=== PATIENT | female | born 1955 | race Caucasian/White ===

== ENCOUNTER → 2017-11-09 | Outpatient (CLI) | payer OTHER | END | disposition home or self-care (01) | LOC: LAB EV 18:31 | DX: L08.9 Local infection of the skin and subcutaneous tissue, unspecified (principal) | CPT/HCPCS: 87070; 87075; 87077; 87147; 87186; 87205 ==

== ENCOUNTER 2020-10-27 07:53 | Day surgery (SDC) | payer MEDICARE, OTHER ==
[~2020-10-27] VITALS: Ht 167.6 cm; Wt 92.1 kg
[~2020-10-27 07:53] MED LIST: ELIQUIS5 MG PO; METO25ER PO; MULTI-VITAMIN1 EAC2 PO; THERA-D2000 UNIT PO; Vitamin B-Comp1 EACH PO
[2020-10-27] MEDS ORDERED: METHI10 PO (08:17)
--- NOTE | 2020-10-27 08:40 | NUR ---
10/27/20 0840 Gardenia Coats 0810 TETRACAINE DROP WAS APPLIED TO LEFT EYE PER DR ORDERS. 0815 PLEGIT WAS INSERTED INTO LEFT EYE PER DR ORDERS.
--- NOTE | 2020-10-27 09:09 | NUR ---
10/27/20 0909 Simran Cabrera, PILLOW UNDER KNEES, RAILS UP.
[2020-11-16] MEDS ORDERED: VITAMIN D325 MC3 PO (12:11)
[2020-11-16] MEDS ORDERED: CALCIUM MAGNES1 EAC1 PO (12:12)
[2020-11-16] MEDS ORDERED: ELIQUIS5 M2 PO (12:13)
[2020-11-16] MEDS ORDERED: TOPROL XL25 MG PO (12:13)
[2020-11-16] MEDS ORDERED: B-100 COMPLEX100 MG PO (12:13)
[2020-11-16] MEDS ORDERED: MULTIPLE VITAM1 EACH PO (12:13)
== END 2020-10-27 10:00 | disposition home or self-care (01) ==
LOC: ORSCSDS 07:53
PROVIDERS: Ophthalmology
PROC: 08RK3JZ Replacement of Left Lens with Synthetic Substitute, Percutaneous Approach (ICD-10-PCS; principal; 2020-10-27 09:00)
DX: H25.12 Age-related nuclear cataract, left eye (principal); I48.91 Unspecified atrial fibrillation; Z79.01 Long term (current) use of anticoagulants; E66.9 Obesity, unspecified; Z68.33 Body mass index [BMI] 33.0-33.9, adult
CPT/HCPCS: A9270; J2001; J2250; J3010; J3301; J7040; J7120; V2632

== ENCOUNTER 2020-11-24 08:18 | Day surgery (SDC) | payer MEDICARE, OTHER ==
[~2020-11-24] VITALS: Ht 167.6 cm; Wt 95.0 kg
[~2020-11-24 08:18] MED LIST changes: +B-100 COMPLEX100 MG PO; +CALCIUM MAGNES1 EAC1 PO; +ELIQUIS5 M2 PO; +METHI10 PO; +MULTIPLE VITAM1 EACH PO; +TOPROL XL25 MG PO; +VITAMIN D325 MC3 PO
--- NOTE | 2020-11-24 08:42 | NUR ---
11/24/20 0842 Gardenia Coats 0835 TETRACAINE WAS INSTILLED IN RIGHT EYE PER ORDERS. 0840 PLEDGET WAS PLACED IN RIGHT EYE PER ORDERS.
[2020-11-24] MEDS ORDERED: LEVSOD88 (08:45)
[2020-11-24] MEDS ORDERED: METHI10 (08:47)
[2020-11-24] MEDS ORDERED: VITAMIN D31000 UNI1 (08:48)
[2020-11-24] MEDS ORDERED: ASCO500 (08:50)
== END 2020-11-24 10:19 | disposition home or self-care (01) ==
LOC: ORSCSDS 08:18
PROVIDERS: Ophthalmology
PROC: 08RJ3JZ Replacement of Right Lens with Synthetic Substitute, Percutaneous Approach (ICD-10-PCS; principal; 2020-11-24 09:30)
DX: H25.11 Age-related nuclear cataract, right eye (principal); J45.909 Unspecified asthma, uncomplicated; I48.91 Unspecified atrial fibrillation; E66.9 Obesity, unspecified; Z68.33 Body mass index [BMI] 33.0-33.9, adult; Z79.01 Long term (current) use of anticoagulants; Z79.899 Other long term (current) drug therapy
CPT/HCPCS: A9270; J2001; J2250; J3010; J3301; J7040; V2632

== ENCOUNTER → 2021-08-04 | Outpatient (CLI) | payer MEDICARE, OTHER ==
[~2021-08-04] MED LIST changes: +ASCO500; +LEVSOD88; +METHI10; +VITAMIN D31000 UNI1
[2021-08-04 13:32] LABS: Appearance, Urine Cloudy (Clear); Bilirubin, Urine Neg (Neg); Blood, Urine Neg (Neg); Color, Urine Yellow (P-Yellow); Glucose Qualitative, Urine Neg (Neg); Ketones, Urine Neg (Neg); Leukocyte Esterase, Urine Neg (Neg); Nitrite, Urine Pos (Neg); Protein, Urine Neg (Neg); Urobilinogen, Urine NORM (Normal)
[2021-08-04 13:56] LABS: Bacteria Many /hpf; Red Blood Cells, Urine 0-2 /hpf (0-2); Squamous Epithelial Cells Rare /hpf (Few)
== END | disposition home or self-care (01) ==
LOC: LAB SHORT 12:41 → LAB 12:41
PROVIDERS: Internal Medicine
DX: N18.31 Chronic kidney disease, stage 3a (principal)
CPT/HCPCS: 81001

== ENCOUNTER 2022-03-02 12:19 | Day surgery (SDC) | payer MEDICARE, OTHER ==
[~2022-03-02] VITALS: Ht 167.6 cm; Wt 95.5 kg
[~2022-03-02 12:19] MED LIST changes: +ALBU90OI INH; +GLUCOSAMINE-CH1 EAC7 PO; -METHI10
== END 2022-03-02 14:10 | disposition home or self-care (01) ==
LOC: ORSCSDS 12:19
PROVIDERS: Surgery
PROC: 0DBH8ZX Excision of Cecum, Via Natural or Artificial Opening Endoscopic, Diagnostic (ICD-10-PCS; principal; 2022-03-02 13:30)
DX: Z12.11 Encounter for screening for malignant neoplasm of colon (principal); Z86.010 Personal history of colon polyps; D12.0 Benign neoplasm of cecum; I48.91 Unspecified atrial fibrillation; Z79.01 Long term (current) use of anticoagulants; Z79.899 Other long term (current) drug therapy
CPT/HCPCS: 88305; J2704; J7120

== ENCOUNTER → 2022-08-16 | Outpatient (CLI) | payer MEDICARE, OTHER ==
[2022-08-16 09:05] LABS: Source, Urine Voided
[2022-08-16 11:57] LABS: Bilirubin, Urine Neg (Neg); Blood, Urine Neg (Neg); Glucose Qualitative, Urine Neg (Neg); Ketones, Urine Neg (Neg); Leukocyte Esterase, Urine Neg (Neg); Nitrite, Urine Pos (Neg); Protein, Urine Neg (Neg); Urobilinogen, Urine NORM (Normal)
[2022-08-16 12:05] LABS: Protein, Urine Random 8.3 mg/dL (0.0-11.9); Protein/Creat Ratio, Ur Random 0.1
[2022-08-16 12:41] LABS: Appearance, Urine Hazy (Clear); Color, Urine Pale Yellow (P-Yellow)
[2022-08-16 12:42] LABS: Bacteria Many /hpf; Red Blood Cells, Urine 0-2 /hpf (0-2); Squamous Epithelial Cells Rare /hpf (Few)
== END | disposition home or self-care (01) ==
LOC: LAB SHORT 06:50
PROVIDERS: Internal Medicine Nephrology
DX: N18.31 Chronic kidney disease, stage 3a (principal)
CPT/HCPCS: 81001; 82570; 84156

== ENCOUNTER → 2023-08-31 | Outpatient (CLI) | payer OTHER ==
[2023-08-31 11:55] LABS: BASOPHILS ABSOLUTE AUTO 0.09 K/mm3 (0.00-0.23); BASOPHILS PERCENT AUTO 1 % (0-2); EOSINOPHILS ABSOLUTE AUTO 0.37 K/mm3 (0.00-0.68); EOSINOPHILS PERCENT AUTO 4 % (0-6); Hematocrit 45.3 % (33.0-51.0); Hemoglobin 15.2 g/dL (11.5-16.0); IMMATURE GRAN ABSOLUTE AUTO 0.02 K/mm3 (0.00-0.10); IMMATURE GRAN PERCENT AUTO 0 % (0-1); LYMPHOCYTES ABSOLUTE AUTO 2.37 K/mm3 (0.84-5.20); LYMPHOCYTES PERCENT AUTO 27 % (21-46); MONOCYTES ABSOLUTE AUTO 0.62 K/mm3 (0.16-1.47); MONOCYTES PERCENT AUTO 7 % (4-13); Mean Corpuscular HGB 30.5 pg (26.0-34.0); Mean Corpuscular HGB Conc 33.6 g/dL (31.5-36.5); Mean Corpuscular Volume 91 fL (80-100); Mean Platelet Volume 11.3 fL (9.1-12.4); NEUTROPHILS ABSOLUTE AUTO 5.38 K/mm3 (1.96-9.15); NEUTROPHILS PERCENT AUTO 61 % (41-73); Platelet Count 290 K/mm3 (150-400); RDW Coefficient Variation 13.3 % (11.7-14.2); RDW Standard Deviation 44.1 fL (35.1-46.3); Red Blood Cell Count 4.98 M/mm3 (3.80-5.20); White Blood Cell Count 8.85 K/mm3 (4.00-11.30)
[2023-08-31 12:00] LABS: Bun/Creatinine Ratio 13.9 (12.0-20.0); Calcium, Blood 9.5 mg/dL (8.5-10.1); Creatinine, Blood 1.08 mg/dL (0.40-1.00); Potassium, Blood 4.4 mmol/L (3.5-5.5)
== END | disposition home or self-care (01) ==
LOC: LAB 11:50 → LAB SHORT 11:50
PROVIDERS: Physician Assistant Surgical
DX: R06.00 Dyspnea, unspecified (principal)
CPT/HCPCS: 80048; 83880; 85025